=== PATIENT | male | born 1965 | race Caucasian/White ===

== ENCOUNTER 2019-02-20 07:38 | Day surgery (SDC) | payer OTHER ==
[2019-02-20] MEDS ORDERED: hydrALAzine 20 MG INJ (09:13)
[2019-02-20] MEDS ORDERED: LABETALOL HCL 20MG INJ (09:13)
[2019-02-20] MEDS ORDERED: PROPOFOL 20 ML ×2 (09:13)
[2019-02-20] MEDS ORDERED: MIDAZOLAM 1 MG/ML 2 ML INJ ×3 (10:09→10:10)
[2019-02-20] MEDS ORDERED: FENTAnyl 50 MCG/ML VIAL (10:10)
== END 2019-02-20 11:20 | disposition home or self-care (01) ==
LOC: GIL 07:38
DX: Z12.11 Encounter for screening for malignant neoplasm of colon (principal); D12.2 Benign neoplasm of ascending colon; K64.4 Residual hemorrhoidal skin tags; D12.8 Benign neoplasm of rectum; I10 Essential (primary) hypertension; E78.5 Hyperlipidemia, unspecified
CPT/HCPCS: 45380; 88305